=== PATIENT | male | born 1945 | race Hispanic/Latino ===

== ENCOUNTER → 2018-09-30 | Outpatient (CLI) | payer OTHER | END | disposition home or self-care (01) | LOC: OIH 10:15 | PROVIDERS: ATTEND Internal Medicine | DX: M51.36 Other intervertebral disc degeneration, lumbar region (principal); M23.91 Unspecified internal derangement of right knee | CPT/HCPCS: 73502; 73560 ==

== ENCOUNTER → 2018-10-08 | Outpatient (CLI) | payer OTHER | END | disposition home or self-care (01) | LOC: OIH 11:20 | PROVIDERS: ATTEND Internal Medicine | DX: M17.11 Unilateral primary osteoarthritis, right knee (principal); M16.11 Unilateral primary osteoarthritis, right hip; M23.91 Unspecified internal derangement of right knee | CPT/HCPCS: 73502; 73560 ==

== ENCOUNTER → 2019-02-09 | Outpatient (CLI) | payer OTHER | END | disposition home or self-care (01) | LOC: RAH 13:38 | PROVIDERS: ATTEND Internal Medicine | DX: J45.909 Unspecified asthma, uncomplicated (principal); J06.9 Acute upper respiratory infection, unspecified | CPT/HCPCS: 71046 ==

== ENCOUNTER → 2019-02-12 | Outpatient (CLI) | payer OTHER | END | disposition home or self-care (01) | LOC: RAH 09:01 | PROVIDERS: ATTEND Internal Medicine Gastroenterology | DX: K21.9 Gastro-esophageal reflux disease without esophagitis (principal); K44.9 Diaphragmatic hernia without obstruction or gangrene; K22.4 Dyskinesia of esophagus; K57.10 Diverticulosis of small intestine without perforation or abscess without bleeding | CPT/HCPCS: 74240 ==

== ENCOUNTER → 2019-06-30 | Outpatient (CLI) | payer OTHER | END | disposition home or self-care (01) | LOC: OIH 14:15 | PROVIDERS: ATTEND Internal Medicine | DX: M19.011 Primary osteoarthritis, right shoulder (principal); M24.811 Other specific joint derangements of right shoulder, not elsewhere classified; Z91.81 History of falling | CPT/HCPCS: 70260; 71100; 73030 ==

== ENCOUNTER → 2019-07-01 | Outpatient (CLI) | payer OTHER | END | disposition home or self-care (01) | LOC: OIH 14:31 | PROVIDERS: ATTEND Internal Medicine | DX: S09.90XA Unspecified injury of head, initial encounter (principal); G31.89 Other specified degenerative diseases of nervous system; M77.31 Calcaneal spur, right foot; R90.82 White matter disease, unspecified; M79.89 Other specified soft tissue disorders; W19.XXXA Unspecified fall, initial encounter; Y93.89 Activity, other specified; Y92.89 Other specified places as the place of occurrence of the external cause; Y99.8 Other external cause status | CPT/HCPCS: 70450; 71100; 73610 ==

== ENCOUNTER → 2020-02-18 | Outpatient (CLI) | payer OTHER | END | disposition home or self-care (01) | LOC: RAH 14:45 | PROVIDERS: ATTEND Internal Medicine | DX: R05 Cough (principal); R06.02 Shortness of breath | CPT/HCPCS: 71046 ==

== ENCOUNTER → 2020-02-28 | Outpatient (CLI) | payer OTHER | END | disposition home or self-care (01) | LOC: OIH 14:55 | PROVIDERS: ATTEND Internal Medicine | DX: M54.16 Radiculopathy, lumbar region (principal) | CPT/HCPCS: 72040; 72070; 72100 ==

== ENCOUNTER → 2020-04-13 | Outpatient (CLI) | payer OTHER | END | disposition home or self-care (01) | LOC: EDBD → OIH 12:42 | PROVIDERS: ATTEND Internal Medicine | DX: M47.24 Other spondylosis with radiculopathy, thoracic region (principal); M47.27 Other spondylosis with radiculopathy, lumbosacral region | CPT/HCPCS: 72070; 72100 ==

== ENCOUNTER → 2020-04-27 | Outpatient (CLI) | payer OTHER | END | disposition home or self-care (01) | LOC: OIH 14:00 | PROVIDERS: ATTEND Internal Medicine | DX: M47.814 Spondylosis without myelopathy or radiculopathy, thoracic region (principal); M48.04 Spinal stenosis, thoracic region; M25.78 Osteophyte, vertebrae | CPT/HCPCS: 71046; 72070 ==

== ENCOUNTER → 2020-07-14 | Outpatient (CLI) | payer OTHER | END | disposition home or self-care (01) | LOC: RAH 09:39 | PROVIDERS: ATTEND Anesthesiology Pain Medicine | DX: M25.812 Other specified joint disorders, left shoulder (principal); M25.811 Other specified joint disorders, right shoulder; M25.512 Pain in left shoulder | CPT/HCPCS: 73030 ==

== ENCOUNTER → 2020-10-17 | Outpatient (CLI) | payer OTHER | END | disposition home or self-care (01) | LOC: OIH 14:40 | PROVIDERS: ATTEND Internal Medicine | DX: I70.0 Atherosclerosis of aorta (principal); M51.35 Other intervertebral disc degeneration, thoracolumbar region; I10 Essential (primary) hypertension | CPT/HCPCS: 71046 ==

== ENCOUNTER → 2020-11-10 | Outpatient (CLI) | payer OTHER | END | disposition home or self-care (01) | LOC: RAH 15:06 | PROVIDERS: ATTEND Internal Medicine | DX: J02.9 Acute pharyngitis, unspecified (principal); M47.815 Spondylosis without myelopathy or radiculopathy, thoracolumbar region | CPT/HCPCS: 71046 ==

== ENCOUNTER → 2022-02-11 | Outpatient (CLI) | payer OTHER | END | disposition home or self-care (01) | LOC: RAH 16:30 | PROVIDERS: ATTEND Internal Medicine | DX: R07.81 Pleurodynia (principal); R07.89 Other chest pain | CPT/HCPCS: 71101 ==

== ENCOUNTER → 2022-03-06 | Outpatient (CLI) | payer OTHER | END | disposition home or self-care (01) | LOC: RAH 08:28 | PROVIDERS: ATTEND Internal Medicine | DX: S29.9XXA Unspecified injury of thorax, initial encounter (principal); W19.XXXA Unspecified fall, initial encounter; R06.02 Shortness of breath; R07.81 Pleurodynia; R07.89 Other chest pain; I70.0 Atherosclerosis of aorta; M47.815 Spondylosis without myelopathy or radiculopathy, thoracolumbar region; X58.XXXA Exposure to other specified factors, initial encounter; Y93.89 Activity, other specified; Y92.89 Other specified places as the place of occurrence of the external cause; Y99.8 Other external cause status | CPT/HCPCS: 71046; 71100 ==

== ENCOUNTER 2023-07-17 12:25 | Emergency (ER) | payer OTHER ==
[~2023-07-17] VITALS: Ht 182.9 cm; Wt 97.1 kg
[2023-07-17 12:31] VITALS: BP 142/86; PULSE 97; RESP 14
== END 2023-07-17 14:58 | disposition home or self-care (01) ==
LOC: EDH 12:25
DX: S60.222A Contusion of left hand, initial encounter (principal); M79.604 Pain in right leg; M54.9 Dorsalgia, unspecified; V89.2XXA Person injured in unspecified motor-vehicle accident, traffic, initial encounter; Y93.I9 Activity, other involving external motion; Y92.488 Other paved roadways as the place of occurrence of the external cause; Y99.8 Other external cause status
CPT/HCPCS: 70450; 72125

== ENCOUNTER → 2025-09-13 | Outpatient (CLI) | payer OTHER ==
--- NOTE | 2025-09-13 19:36 | HMCIMG ---
STUDY: X-RAY OF THE RIGHT RIBS, 6 VIEWS (MULTIPLE PROJECTIONS) HISTORY: Right-sided rib pain. TECHNIQUE: Six views of the right ribs and chest are submitted for interpretation. COMPARISON: None provided. FINDINGS: Bones and joints: Right ribs demonstrate normal alignment and mineralization without acute fracture, focal cortical disruption, or destructive osseous lesion. Visualized thoracic spine, clavicle, and shoulder girdle structures show no acute abnormality. Chest and pleura: Visualized lungs are clear without focal consolidation, pleural effusion, or pneumothorax. Cardiomediastinal silhouette is within normal limits in size. Mild calcification of the aortic arch is noted, compatible with atherosclerotic change. Soft tissues: Overlying soft tissues are unremarkable without focal swelling, soft tissue gas, or radiopaque foreign body. IMPRESSION: * No acute right rib fracture or radiographic complication identified to explain right-sided rib pain. * Mild aortic arch calcification, compatible with chronic atherosclerotic vascular disease; correlate with cardiovascular risk profile and preventive management as clinically indicated. /[place]
== END | disposition home or self-care (01) ==
LOC: RAH 12:55
PROVIDERS: ATTEND Internal Medicine
DX: I70.0 Atherosclerosis of aorta (principal); R07.81 Pleurodynia
CPT/HCPCS: 71100